=== PATIENT | male | born 1970 | race Caucasian/White ===

== ENCOUNTER 2025-01-07 07:46 | Emergency (ER) | payer OTHER, SELFPAY ==
[2025-01-07 07:49] VITALS: BP 172/102
--- NOTE | 2025-01-07 07:51 | ED.GENMED ---
History of Present Illness
General
Chief Complaint: DVT/Possible Blood Clot
Time Seen by Provider: 01/07/25 07:51
History of Present Illness
History of Present Illness:
PAST MEDICAL HISTORY AND REVIEW OF OLD RECORDS
- The patient has had DVT in the past and has also had a vasectomy. I reviewed records, ultrasound in 2015 showed gastroc DVT and follow-up ultrasound in 2016 showed no DVT.
Note:
CHIEF COMPLAINT(S)
Swelling and pain in the left leg.
HISTORY OF PRESENT ILLNESS
The patient is an 87-year-old female with a known history of atrial fibrillation, currently on Apixaban (Eliquis), presenting with swelling and pain in the left leg. The patient describes a sensation of discomfort when pressure is applied to the
area, and there are visible areas of bruising and superficial varicose veins. The symptoms have persisted despite the patient elevating the leg. The patient had a visit to [facility] recently, where an imaging machine was possibly used, but no
specific details about ultrasound use are available from outside records. There has been no swelling or pain reported in the right leg. The patient denies experiencing any palpitations or chest pain but acknowledges her heart rate is elevated. She
also reports not taking her medications this morning.
PAST MEDICAL AND SURGICAL HISTORY
- Atrial Fibrillation
- History of knee replacement approximately 50 years ago
SOCIAL HISTORY
The patient has been in a long-term relationship with her partner for 42 years.
MEDICATIONS
- Apixaban (Eliquis). Other medications unknown as the patient did not have the medication list available.
PHYSICAL EXAM
General: Alert, no acute distress.
Skin: Visible areas of bruising and superficial varicose veins noted on left leg.
Head: Normocephalic, atraumatic.
Neck: Supple, trachea midline.
Eye, Ears, nose, mouth and throat: Oral mucosa moist.
Cardiovascular: Tachycardia present; normal peripheral perfusion, no edema noted in right leg.
Respiratory: Respirations are non-labored.
Gastrointestinal: Abdomen nondistended.
Back: Normal range of motion, normal alignment.
Musculoskeletal: Normal range of motion, normal strength. There is focal tenderness noted to the distal left leg just anterior and superior to the left lateral malleolus. Trace ankle edema on the left.
Neurological: Alert and oriented to person, place, time, and situation, no focal neurological deficit observed.
Psychiatric: Cooperative, appropriate mood & affect.
PLAN
- Order ultrasound of the left leg to assess for potential deep vein thrombosis or other vascular issues.
- Administer Tylenol for pain management as requested by the patient.
- Continue monitoring heart rate due to tachycardia and determine if additional intervention is required, given the history of atrial fibrillation.
DIFFERENTIAL DIAGNOSIS
The Differential Diagnosis includes, in no particular order and is not limited to:
- Deep vein thrombosis
- Superficial thrombophlebitis
- Varicose vein rupture
- Hematoma due to anticoagulation
- Lymphedema
- Cellulitis
- Chronic venous insufficiency
- Congestive heart failure exacerbation
- Peripheral arterial disease
- Musculoskeletal pain/injury
RADIOLOGY
- Ultrasound imaging obtained
SUMMARY OF ENCOUNTER
The patient, a 54-year-old male with a history of a blood clot in 2014, presented to the emergency department with pain and swelling in the left leg, primarily in the left calf, radiating up the [place] and into the foot. The pain worsens with movement
and ice application, subsiding when seated. After evaluating the patient and conducting an ultrasound, no blood clot was detected. The likely cause of the symptoms is inflammatory changes, possibly affecting the peroneal tendons. The patient has
been advised to use ibuprofen (Motrin) for managing inflammation.
DISPOSITION
Discharge.
ASSESSMENT
The absence of a blood clot suggests the pain and swelling might be due to tendonitis or another inflammatory process, possibly aggravated by movement.
PLAN
The patient is advised to take ibuprofen (Motrin) 300-400 mg every 8 hours with food for a few days to manage inflammation and pain. Use crutches if needed. Wrapping the leg is not necessary since it may not provide significant benefits.
INDEPENDENT REVIEW OF LABS AND INTERPRETATION OF TESTS
My independent review of the ultrasound of the left leg shows no signs of a blood clot.
PATIENT EDUCATION AND COUNSELING
The patient was educated on the importance of taking ibuprofen with food to minimize stomach irritation. The use of crutches was suggested to alleviate weight-bearing on the affected leg. Discussed the limited benefit of wrapping and suggested
focusing on medication and rest.
FOLLOW-UP INSTRUCTIONS
The patient is advised to seek follow-up care with a primary care provider if symptoms persist or worsen.
MEDICATION RECONCILIATION
Ibuprofen (Motrin) 300-400 mg every 8 hours with food for a few days is recommended for inflammation management.
MEDICAL DECISION MAKING
1. Number and Complexity of Problems Addressed: Chronic conditions affecting care: History of blood clot in 2015. Differential diagnosis considered includes deep vein thrombosis, tendonitis, and muscle strain.
2. Data:
- Category 1: My independent review of the ultrasound of the left leg for potential deep vein thrombosis was negative.
3. Risk: Considering and ruling out a blood clot helped manage potential risk. Medication (ibuprofen) was prescribed for symptom management.
DIAGNOSIS
Tendonitis or inflammation of the peroneal tendons (ICD-10: M76.60).
Past History
Past History
ED Past Medical History: None
ED Past Surgical History: None
Social History
Tobacco: Non-smoker
Personal:
Living: with family
Employment: Employed
Phy Exam
Physical Exam
Physical Exam:
See HPI
Course
Orders/Labs/Results
Orders:
Orders
01/07/25 07:56
US Legs, Left [US Periph Venous LOWER Ext LT] Urgent
Comment:
Reason For Exam: pain
01/07/25 08:45
Ibuprofen [Motrin] 800 mg PO NOW STA
01/07/25 08:47
Ibuprofen [Motrin] 800 mg .ROUTE .STK-MED ONE
Vital Signs
Initial and Last Documented VS:
Initial Vital Signs
Temp Pulse Resp BP Pulse Ox
37.0 C 76 18 172/102 98
01/07/25 07:49 01/07/25 07:49 01/07/25 07:49 01/07/25 07:49 01/07/25 07:49
Last Documented Vital Signs
Temp Pulse Resp BP Pulse Ox
37.0 C 53 16 135/89 100
01/07/25 07:49 01/07/25 10:08 01/07/25 10:08 01/07/25 10:08 01/07/25 10:08
*Pulse Oximetry
SaO2: 98
Oxygen Mode of Delivery: Room air
Patient hypoxic: no
*Critical Care Note
Total Time (30-74mins, 75-104mins- exclusive of procedures): Not Applicable
ED Attending Note
-
Portions of this chart may have been created with voice recognition software.� Occasional wrong word or��sound alike� substitutions may have occurred due to the inherent limitations of voice recognition software.
Discharge Plan
Departure
Patient Disposition: Home (Routine Discharge)
Date of Disposition: 01/07/25
Time of Disposition: 10:47
Patient with high blood pressure during this ER visit?: Yes
Discharge Problem:
Acute leg pain
Instructions: Tendinopathy, BLOOD PRESSURE
Referrals:
Isaías Hayden NP [Family Provider, General]
Activity Restrictions/Additional Instructions:
I recommend 3-4 [id number] ibuprofen (Motrin) every 8 hours with food for a few days. Return here if worse. The ultrasound shows no evidence of blood clot in the veins.
Interventions
Interventions:
*Risk Screen - Suicide Last Done: 01/07/25 07:49
*General Assessment Last Done: 01/07/25 07:49
*Neglect/Abuse Screening Last Done: 01/07/25 07:49
*ED- Fall Risk Assessment Last Done: 01/07/25 07:57
*ED COVID-19 Vaccine History Last Done: 01/07/25 07:57
*Nursing Disposition Last Done: 01/07/25 11:00
ED- Cardiac Assessment Last Done: 01/07/25 07:57
ED- Pulmonary Assessment Last Done: 01/07/25 07:57
ED-Peripheral Vascular Assessment Last Done: 01/07/25 07:57
ED-Skin Assessment Last Done: 01/07/25 08:00
Discharge Date and Time
Discharge Date/Time: 01/07/25 11:01
Print Language: [place]IZ[place]
[2025-01-07 07:57] VITALS: BMI 32.3
[2025-01-07 08:48] VITALS: BP 152/95
[2025-01-07] MEDS: MOTRIN 800 MG PO (08:49)
[2025-01-07 10:08] VITALS: BP 135/89
== END 2025-01-07 11:01 | disposition home or self-care (01) ==
LOC: EMR 07:46
PROVIDERS: EMERGENCY PHYSICIAN Emergency Medicine; FAMILY PHYSICIAN Nurse Practitioner Gerontology
DX: M79.662 Pain in left lower leg (principal); I48.91 Unspecified atrial fibrillation; Z79.01 Long term (current) use of anticoagulants; Z86.718 Personal history of other venous thrombosis and embolism; Z96.659 Presence of unspecified artificial knee joint
CPT/HCPCS: 99284; 93971